=== PATIENT | male | born 1975 | race Hispanic/Latino ===

== ENCOUNTER 2023-02-18 12:40 | Emergency (ER) | payer SELFPAY ==
[~2023-02-18] VITALS: Ht 167.6 cm; Wt 81.0 kg
[2023-02-18 13:28] LABS: BASO% 0.2 % (0-3); HEMATOCRIT 46.2 % (39.0-50.0); HEMOGLOBIN 15.9 g/dl (14.0-18.0); IMMATURE GRANULOCYTES 0.2 % (0.0-5.0); LYMPH% 8.1 % (15-41); MEAN CORPUSCULAR HGB 30.3 pG CALC (26.0-32.0); MEAN CORPUSCULAR HGB CONC 34.4 g/dL CAL (32.0-36.0); MONO% 2.8 % (2-13); NEUT# 11.68 thou/uL (1.82-7.42); NEUT% 88.7 % (42-76); RED BLOOD COUNT 5.25 mill/uL (4.70-6.10); RED CELL DISTRI WIDTH 11.6 % (11.5-15.5)
[2023-02-18 13:54] LABS: ALBUMIN 5.1 g/dL (3.2-5.0); ALKALINE PHOSPHATASE 81 u/l (38-126); ANION GAP 19 (6-22 (CALC)); BILIRUBIN, TOTAL 1.4 mg/dL (0.2-1.3); BUN 13 mg/dL (9-20); BUN/CREATININE RATIO 15 (12-20 (CALC)); CARBON DIOXIDE 19 mmol/l (22-30); CHLORIDE 106 mmol/l (95-108); CREATININE 0.8 mg/dL (0.7-1.3); GFR FOR AFR.AMER. > 60 ML/MIN (>=60 (CALC)); GFR OTHER RACES > 60 ML/MIN (>=60 (CALC)); LIPASE 64 u/l (23-300); POTASSIUM 3.8 mmol/l (3.5-5.1); SGOT/AST 26 u/l (17-59); SODIUM 140 mmol/l (137-146); TOTAL PROTEIN 8.5 g/dL (6.3-8.2)
[2023-02-18 15:44] LABS: URINE BILIRUBIN - DIPSTICK Negative (NEGATIVE); URINE BLOOD DIPSTICK Moderate (NEGATIVE); URINE COLOR Yellow; URINE GLUCOSE - DIPSTICK Negative (NEGATIVE); URINE KETONE 80 mg/dL (NEGATIVE); URINE LEUK ESTERASE Negative (NEGATIVE); URINE NITRITE - DIPSTICK Negative (Negative); URINE PH 7.5 (4.5-8.0); URINE PROTEIN - DIPSTICK Negative (NEG-TRACE); URINE SPECIFIC GRAVITY 1.015; URINE UROBILINOGEN - DIPSTICK 0.2 E.U./dL (0.2)
[2023-02-18 15:52] LABS: URINE WBC 0-2 WBC/hpf (0-5)
[2023-02-18] MEDS ORDERED: TAMSULOSIN0.4 MG PO (16:20)
[2023-02-18] MEDS ORDERED: NAPROXEN500 MG PO (16:20)
[2023-02-18 16:32] VITALS: BP 160/91
== END 2023-02-18 16:33 | disposition home or self-care (01) | DRG 392 ==
LOC: ED 12:40
PROVIDERS: Nurse Practitioner
DX: R10.31 Right lower quadrant pain (principal); R31.9 Hematuria, unspecified
CPT/HCPCS: Q9967

== ENCOUNTER 2024-04-17 16:31 | Emergency (ER) | payer OTHER ==
[~2024-04-17] VITALS: Ht 167.6 cm; Wt 88.4 kg
[~2024-04-17 16:31] MED LIST: NAPROXEN500 MG PO; TAMSULOSIN0.4 MG PO
[2024-04-17 16:39] VITALS: BP 131/93
[2024-04-17] MEDS ORDERED: KETOROLAC TROMETHAMINE 30 MG/ML SDV IM ONE (16:40)
[2024-04-17] MEDS ORDERED: ORPHENADRINE CITRATE 30 MG/ML AMP IM ONE (16:40)
[2024-04-17 16:45] VITALS: BP 123/88
[2024-04-17 17:34] VITALS: BP 111/82
[2024-04-17 17:45] VITALS: BP 105/78
[2024-04-17 18:01] VITALS: BP 102/83
[2024-04-17 18:25] VITALS: BP 102/83
[2024-04-17] MEDS ORDERED: METHOCARBAMOL500 MG PO (18:25)
== END 2024-04-17 18:35 | disposition home or self-care (01) | DRG 313 ==
LOC: ED 16:31
DX: R07.89 Other chest pain (principal)